=== PATIENT | female | born 1985 | race Caucasian/White ===

== ENCOUNTER 2022-04-27 10:56 | Emergency (ER) | payer OTHER, SELFPAY ==
[2022-04-27] VITALS (8 sets, daily range): BP systolic 108–115; BP diastolic 61–69; PULSE 62–70; RESP 16; TEMP 36.6–36.9; O2SAT 99–100; BMI 35.0
--- NOTE | 2022-04-27 11:18 | ED_ITS ---
HPI - Nausea/Vomiting/Diarrhea General Chief complaint: Nausea/Vomiting/Diarrhea Stated complaint: Hyperemesis- 9 wks Time Seen by Provider: 04/27/22 11:03 Source: patient Mode of arrival: Ambulatory History of Present Illness HPI Narrative: Winnie is a 36-year-old woman at approximately 9 weeks gestation who has been having significant nausea and vomiting. She takes oral ondansetron to no effect. She called for her 1st OB appointment today but after speaking to the nurse, decided to come to the hospital for further evaluation. She reports many episodes of vomiting each day for many weeks now. She has not had fever. She denies urinary symptoms. She denies flank pain or abdominal pain or vaginal bleeding. Symptoms that she has experienced over the past 2 or 3 weeks are dramatically worse than her previous . Related Data Previous Rx's Medication Instructions Recorded nitrofurantoin 100 mg PO BID #14 caps 04/27/22 monohydrate/macrocrystals 100 mg capsule (Macrobid) ondansetron 4 mg disintegrating 4 mg PO Q6H PRN Nausea And 04/27/22 tablet Vomiting 10 days #40 tabs promethazine 25 mg rectal 25 mg NM Q6H PRN nausea and 04/27/22 suppository vomiting #12 ea Allergies Allergy/AdvReac Type Severity Reaction Status Date / Time No Known Drug Allergies Allergy Verified 04/27/22 11:06 Review of Systems Review of Systems Narrative: Complete review of systems is negative other than as noted above. Patient History Social History Smoking Status: Never smoker Smoking Status: Never smoker Substance Use Type: does not use Exam Narrative Exam Narrative: GENERAL: Alert, cooperative and in no distress. HEAD: Atraumatic. Normocephalic. EYES: Sclera are clear without icterus. Extraocular movements are full. ENT: No rhinorrhea. Oropharynx is moist. Mouth exam is benign. NECK: Supple. Full range of motion. CARDIOVASCULAR: Normal rate and rhythm without murmur gallop or rub. RESPIRATORY: Clear to auscultation. Breath sounds equal bilaterally. No wheezes, rales, or rhonchi. GASTROINTESTINAL: Abdomen soft, non-tender, nondistended. EXTREMITIES: No edema, full range of motion. No obvious trauma. BACK: Normal inspection, no CVA tenderness. NEURO: Nonfocal examination, normal speech, normal gait. SKIN: No rash or erythema of visible areas PSYCH: Normally oriented. Normal range of affect. Appropriate behavior Initial Vital Signs Initial Vital Signs: Vital Signs Temperature 97.9 F 04/27/22 11:04 Course Orders Ordered: ED Orders 04/27/22 11:24 CBC Auto Diff [Complete Blood Count AUTO DIFF] Stat CMP [Comprehensive Metabolic Panel] Stat HCG Quantitative /Beta subunit Stat UA dip and micro [Urinalysis and Microscopic] Stat Urine Culture Stat Ondansetron HCl (Ondansetron 4 Mg/2 Ml Inj) 4 mg IV Q2HR PRN PRN Reason: Nausea And Vomiting Last Admin: 04/27/22 11:30 Dose: 4 mg Documented By: AT Discontinued Medications Sodium Chloride (Normal Saline 0.9%) 1,000 mls @ 1,000 mls/hr IV BOLUS ONE Stop: 04/27/22 12:12 Last Infusion: 04/27/22 13:26 Dose: 0 mls/hr Documented By: Admin: 04/27/22 11:31 Dose: 1,000 mls/hr Documented By: AT Vital Signs Vital signs: Vital Signs - 8 hr 04/27/22 11:04 04/27/22 12:05 04/27/22 12:30 Temperature 97.9 F Pulse Rate 62 65 Pulse Oximetry 100 100 Oxygen Delivery Method Room Air MDM - Nausea/Vomiting/Diarrhea Lab Data Result diagrams: 04/27/22 11:24 04/27/22 11:24 Labs: Lab Results 04/27/22 04/27/22 04/27/22 Range/Units 11:24 11:24 11:24 WBC 7.7 (4.5-11.0) X10^3/uL RBC 4.38 (4.0-5.2) X10^6/uL Hgb 13.4 (12.0-16.0) g/dL Hct 38.8 (36-46) % MCV 88.6 (80-100) fL MCH 30.5 (26-34) PG MCHC 34.4 (30-36) % RDW 13.2 (11.6-14.8) % Plt Count 241 (150-400) X10^3/uL Neut % (Auto) 71.0 (50-75) % Lymph % (Auto) 20.9 L (25-40) % [place] % (Auto) 7.2 (3-14) % Eos % (Auto) 0.3 L (2-4) % Baso % (Auto) 0.6 (0-2) % Neut # (Auto) 5500 (1345-4054) /uL Lymph # (Auto) 1600 (9819-3616) /uL [place] # (Auto) 600 (0-900) /uL Eos # (Auto) 0 (0-450) /uL Baso # (Auto) 0 (0-100) /uL Sodium 134 L (137-145) mmol/L Potassium 3.6 (3.4-5.1) mmol/L Chloride 104 (98-107) mmol/L Carbon Dioxide 22 (22-32) mmol/L BUN 10 (7-17) mg/dL Creatinine 0.88 (0.52-1.04) mg/dL Estimated GFR > 60 (>60) mL/min BUN/Creatinine Ratio 11.4 (6-22) Glucose 103 H (70-100) mg/dL Calcium 9.2 (8.4-10.2) mg/dL Total Bilirubin 0.4 (0.2-1.3) mg/dL AST 27 (14-36) IU/L ALT 23 (<35) IU/L Alkaline Phosphatase 63 (38-126) U/L Total Protein 7.2 (6.3-8.2) g/dL Albumin 4.0 (3.5-5.0) g/dL Globulin 3.2 (1.7-4.1) g/dL Albumin/Globulin Ratio 1.3 (1.0-2.8) HCG, Quant 460317 mIU/mL Urine Color Urine Appearance Urine pH (4.5-8.0) Ur Specific [place] (1.000-1.035) Urine Protein (Negative) Urine Glucose (UA) (Negative) g/dL Urine Ketones (NEGATIVE) Urine Occult Blood (Negative) Urine Nitrate (Negative) Urine Bilirubin (NEGATIVE) Urine Urobilinogen (0.2) E.U./dL Ur Leukocyte Esterase (NEGATIVE) Urine RBC (0-5/HPF) Urine WBC (0-5/HPF) Ur Squamous Epith Cells (0-5/HPF) Urine Bacteria (None) Ur Culture Indicated? 04/27/22 Range/Units 11:24 WBC (4.5-11.0) X10^3/uL RBC (4.0-5.2) X10^6/uL Hgb (12.0-16.0) g/dL Hct (36-46) % MCV (80-100) fL MCH (26-34) PG MCHC (30-36) % RDW (11.6-14.8) % Plt Count (150-400) X10^3/uL Neut % (Auto) (50-75) % Lymph % (Auto) (25-40) % [place] % (Auto) (3-14) % Eos % (Auto) (2-4) % Baso % (Auto) (0-2) % Neut # (Auto) (0909-8165) /uL Lymph # (Auto) (0776-7763) /uL [place] # (Auto) (0-900) /uL Eos # (Auto) (0-450) /uL Baso # (Auto) (0-100) /uL Sodium (137-145) mmol/L Potassium (3.4-5.1) mmol/L Chloride (98-107) mmol/L Carbon Dioxide (22-32) mmol/L BUN (7-17) mg/dL Creatinine (0.52-1.04) mg/dL Estimated GFR (>60) mL/min BUN/Creatinine Ratio (6-22) Glucose (70-100) mg/dL Calcium (8.4-10.2) mg/dL Total Bilirubin (0.2-1.3) mg/dL AST (14-36) IU/L ALT (<35) IU/L Alkaline Phosphatase (38-126) U/L Total Protein (6.3-8.2) g/dL Albumin (3.5-5.0) g/dL Globulin (1.7-4.1) g/dL Albumin/Globulin Ratio (1.0-2.8) HCG, Quant mIU/mL Urine Color Yellow Urine Appearance Sl cloudy Urine pH 5.5 (4.5-8.0) Ur Specific [place] 1.025 (1.000-1.035) Urine Protein 1+ H (Negative) Urine Glucose (UA) Negative (Negative) g/dL Urine Ketones 3+ H (NEGATIVE) Urine Occult Blood Trace-lysed (Negative) Urine Nitrate Negative (Negative) Urine Bilirubin Negative (NEGATIVE) Urine Urobilinogen 0.2 (0.2) E.U./dL Ur Leukocyte Esterase Trace H (NEGATIVE) Urine RBC None seen (0-5/HPF) Urine WBC 1-5/hpf (0-5/HPF) Ur Squamous Epith Cells 1-5 /hpf (0-5/HPF) Urine Bacteria Few (2-10) H (None) Ur Culture Indicated? Specimen cultured MDM Narrative Medical decision making narrative: Patient has asymptomatic bacteriuria. Will treat empirically. No evidence of severe dehydration. I have prescribed antiemetic medication. I recommend outpatient follow-up. Discharge Plan Departure Patient Disposition: Home Clinical Impression: Hyperemesis gravidarum Instructions: DI for Hyperemesis Gravidarum Activity Restrictions/Additional Instructions: No dangerous dehydration is detected. You have a few bacteria in the urine and in the setting of we recommend an antibiotic for 7 days. Regarding her nausea I recommend ondansetron oral dissolving tablets every 4 hours as needed. If this is not sufficient, you could take promethazine rectal suppositories every 6 hours. Make sure you are drinking plenty of fluid, small sips frequently. Try to eat small high-protein meals frequently throughout the day. Follow-up with your obstetrical provider in the coming days. Return to the emergency department if you are concerned that he may be becoming significantly dehydrated or if your symptoms of nausea or so severe that they cannot be controlled with the medicines provided. Prescriptions: New promethazine 25 mg suppository 25 mg NM Q6H PRN (Reason: nausea and vomiting) Qty: 12 0RF nitrofurantoin monohyd/m-cryst [Macrobid] 100 mg capsule 100 mg PO BID Qty: 14 0RF Rx Instructions: must administer with a meal/food ondansetron 4 mg tablet,disintegrating 4 mg PO Q6H PRN (Reason: Nausea And Vomiting) 10 Days Qty: 40 0RF Referrals: Ruslan Suarez DO [Primary Care Provider] -
[2022-04-27] MEDS: ONDANSETRON 4 MG/2 ML INJ IV (11:30)
[2022-04-27] MEDS: SODIUM CHLORIDE 0.9% 1,000 ML 1000 ML IV (11:31)
[2022-04-27 11:32] LABS: Appearance Urine UA SL CLOUDY; Bilirubin Urine UA NEGATIVE (NEGATIVE); Color Urine UA YELLOW; Glucose Urine UA NEGATIVE (Negative); Ketones Urine UA 3+ (NEGATIVE); Leukocyte Esterase Urine UA TRACE (NEGATIVE); Nitrite Urine UA NEGATIVE (Negative); Occult Blood Urine UA TRACE-LYSED (Negative); Protein Urine UA 1+ (Negative); Specific Gravity Urine UA 1.025 (1.000-1.035); Urobilinogen Urine UA 0.2 E.U./dL (0.2)
[2022-04-27 11:34] LABS: Add Manual Diff / Slide Review NO; Basophils Absolute Auto 0 /uL (0-100); Basophils Percent Auto 0.6 % (0-2); Eosinophils Absolute Auto 0 /uL (0-450); Eosinophils Percent Auto 0.3 % (2-4); Hematocrit 38.8 % (36-46); Hemoglobin 13.4 g/dL (12.0-16.0); Lymphocytes Absolute Auto 1600 /uL (1100-4500); Lymphocytes Percent Auto 20.9 % (25-40); Mean Corpuscular HGB Conc 34.4 % (30-36); Mean Corpuscular Hemoglobin 30.5 PG (26-34); Mean Corpuscular Volume 88.6 fL (80-100); Monocytes Absolute Auto 600 /uL (0-900); Monocytes Percent Auto 7.2 % (3-14); Neutrophils Absolute Auto 5500 /uL (1500-7000); Platelet Count 241 X10^3/uL (150-400); Red Blood Cell Count 4.38 X10^6/uL (4.0-5.2); Red Cell Distribution Width 13.2 % (11.6-14.8); White Blood Cell Count 7.7 X10^3/uL (4.5-11.0); pH Urine UA 5.5 (4.5-8.0)
[2022-04-27 11:43] LABS: Bacteria Urine Few (2-10); RBC Urine None Seen (0-5/HPF); Squamous Epithelial Cell Urine 1-5 /HPF (0-5/HPF); WBC Urine 1-5/HPF (0-5/HPF)
[2022-04-27 11:44] LABS: Culture Indicated Urine Specimen Cultured
[2022-04-27 11:50] LABS: Alanine Aminotransferase 23 IU/L (<35); Albumin Globulin Ratio 1.3 (1.0-2.8); Alkaline Phosphatase 63 U/L (38-126); Aspartate Aminotransferase 27 IU/L (14-36); BUN Creatinine Ratio 11.4 (6-22); Bilirubin Total 0.4 mg/dL (0.2-1.3); Blood Urea Nitrogen 10 mg/dL (7-17); Calcium 9.2 mg/dL (8.4-10.2); Carbon Dioxide 22 mmol/L (22-32); Chloride 104 mmol/L (98-107); Estimated Glomerular Filt Rate > 60 mL/min (>60); Globulin 3.2 g/dL (1.7-4.1); Glucose 103 mg/dL (70-100); HEMOLYSIS < 15 (0-50); Potassium 3.6 mmol/L (3.4-5.1); Sodium 134 mmol/L (137-145); Total Protein 7.2 g/dL (6.3-8.2)
[2022-04-27 12:31] LABS: HCG Quantitative /Beta subunit 118860 mIU/mL
== END 2022-04-27 13:39 | disposition home or self-care (01) ==
PROVIDERS: Emergency Provider Family Medicine Addiction Medicine; PCP Student in an Organized Health Care Education/Training Program
DX: O21.0 Mild hyperemesis gravidarum (principal); Z3A.09 9 weeks gestation of pregnancy
CPT/HCPCS: 36415; 80053; 81001; 84702; 85025; 87086; 96361; 96374; 99284; J2405

== ENCOUNTER → 2022-04-30 09:48 | Outpatient (CLI) | payer OTHER, SELFPAY ==
--- NOTE | 2022-04-30 09:49 | DI.US.S_ITS ---
PROCEDURE: US OB <= 14 WEEKS FETUS INDICATIONS: dating and viability OUTSIDE/PRIOR DATING DATA: Last menstrual period (LMP): 02/20/2022. LMP-based estimated date of delivery (DYAN): 11/27/2022. First dating scan (date and location): 04/30/2022. Estimated date of delivery (DYAN) from first dating scan: 11/30/2022. The calculations are made using the ultrasound derived DYAN of 11/30/2022. TECHNIQUE: Real-time scanning was performed of the fetus and maternal pelvic organs, with image documentation. Endovaginal scanning was also performed to better visualize the fetus and maternal ovaries. COMPARISON: None. FINDINGS: Embryo: [place]-rump length 2.6 centimeters. Estimated gestational age 9 weeks 3 days on the basis of this crown-rump length. Heart rate: 175 Maternal organs: Ovaries normal. IMPRESSION: Single living intrauterine with crown-rump length of 2.6 centimeters which yields estimated gestational age of 9 weeks 3 days. We strive to produce accurate, complete, and clear reports of imaging services. To assist us in improving patient care, this report was composed using standard report templates and voice recognition software. Therefore, it may contain abnormal punctuation, insertions and/or omissions. Occasional wrong-word or sound-alike substitutions may occur. Though we review the report and make efforts to correct it, we do recommend that the report be read carefully in proper context to recognize any text inaccuracies. Dictated by: Saad Tay M.D. on 04/30/2022 at 12:34 Approved by: Saad Tay M.D. on 04/30/2022 at 12:35
== END ==
PROVIDERS: PCP Student in an Organized Health Care Education/Training Program; Referring Provider Obstetrics & Gynecology; Visit Provider Obstetrics & Gynecology
DX: Z34.81 Encounter for supervision of other normal pregnancy, first trimester (principal); Z3A.09 9 weeks gestation of pregnancy
CPT/HCPCS: 76801

== ENCOUNTER → 2022-05-01 11:39 | Outpatient (CLI) | payer OTHER, SELFPAY ==
[2022-05-01 13:24] LABS: Add Manual Diff / Slide Review NO; Basophils Absolute Auto 0 /uL (0-100); Basophils Percent Auto 0.7 % (0-2); Eosinophils Absolute Auto 0 /uL (0-450); Eosinophils Percent Auto 0.6 % (2-4); Hematocrit 36.8 % (36-46); Hemoglobin 12.6 g/dL (12.0-16.0); Lymphocytes Absolute Auto 1900 /uL (1100-4500); Lymphocytes Percent Auto 33.4 % (25-40); Mean Corpuscular HGB Conc 34.4 % (30-36); Mean Corpuscular Hemoglobin 30.6 PG (26-34); Monocytes Absolute Auto 500 /uL (0-900); Monocytes Percent Auto 8.1 % (3-14); Neutrophils Absolute Auto 3300 /uL (1500-7000); Neutrophils Percent Auto 57.2 % (50-75); Platelet Count 211 X10^3/uL (150-400); Red Blood Cell Count 4.14 X10^6/uL (4.0-5.2); Red Cell Distribution Width 13.4 % (11.6-14.8); White Blood Cell Count 5.8 X10^3/uL (4.5-11.0)
[2022-05-01 15:51] LABS: Hepatitis B Surface Antigen NEGATIVE s/c (NEGATIVE); Rubella Antibody IgG 17.5 IU/mL (>15)
[2022-05-01 16:19] LABS: HIV 1 & 2 Ab/Ag 4th Gen Combo NEGATIVE (NEGATIVE); Hep C Virus Ab w/Reflex Quant NEGATIVE s/c (NEGATIVE)
[2022-05-02 07:47] LABS: RPR Screen Non Reactive (Non Reactive)
[2022-05-02 08:08] LABS: Varicella IgG Antibody 2252 index (Immune >165)
== END ==
PROVIDERS: PCP Student in an Organized Health Care Education/Training Program; Referring Provider Obstetrics & Gynecology; Visit Provider Obstetrics & Gynecology
DX: Z34.81 Encounter for supervision of other normal pregnancy, first trimester (principal)
CPT/HCPCS: 36415; 80055; 86787; 86803; 86850; 86900; 86901; 87086; 87389

== ENCOUNTER → 2022-05-08 13:05 | Outpatient (CLI) | payer OTHER, SELFPAY | PROVIDERS: PCP Student in an Organized Health Care Education/Training Program; Referring Provider Obstetrics & Gynecology; Visit Provider Obstetrics & Gynecology | DX: O09.511 Supervision of elderly primigravida, first trimester (principal) | CPT/HCPCS: 36415 ==

== ENCOUNTER → 2022-06-18 10:13 | Outpatient (CLI) | payer OTHER, SELFPAY ==
[2022-06-18 14:18] LABS: Urine N gonorrhoeae NOT DETECTED
[2022-06-18 15:09] LABS: Urine Chlamydia NOT DETECTED
[2022-06-20 19:38] LABS: AFP Value 23.4 ng/mL (.); Gest Age on Col Date 16.9 weeks (.); Insulin Dep Diabetes No (.); OSBR Risk 1IN 10000 (.); Results Report (.); Test Results *Screen Negative* (.)
== END ==
PROVIDERS: PCP Student in an Organized Health Care Education/Training Program; Referring Provider Obstetrics & Gynecology; Visit Provider Obstetrics & Gynecology
DX: Z34.02 Encounter for supervision of normal first pregnancy, second trimester (principal); Z11.3 Encounter for screening for infections with a predominantly sexual mode of transmission; Z3A.16 16 weeks gestation of pregnancy
CPT/HCPCS: 36415; 82105; 87491; 87591

== ENCOUNTER → 2022-07-15 13:59 | Outpatient (CLI) | payer OTHER, SELFPAY ==
--- NOTE | 2022-07-15 14:01 | DI.US.S_ITS ---
PROCEDURE: US OB >= 14 WEEKS FETUS INDICATIONS: 20 Week Anatomy Scan OUTSIDE/PRIOR DATING DATA: Last menstrual period (LMP): 02/20/2022. LMP-based estimated date of delivery (DYAN): 11/27/2022. First dating scan (date and location): 04/30/2022. Estimated date of delivery (DYAN) from first dating scan: 11/30/2022. The calculations are made using the ultrasound DYAN of 11/30/2022. TECHNIQUE: Real-time scanning was performed of the fetus, with image documentation and biometric measurements. COMPARISON: [facility], , OB <= 14 WEEKS FETUS, 04/30/2022, 9:55. FINDINGS: General: A single living intrauterine gestation is present. Presentation: Vertex. Placenta: Placental position is right fundal, without previa. Amniotic fluid index: 14.2 cm, normal range is 5-24 cm. Single deepest vertical pocket is 5.6 cm. heart rate: 160 beats per minute. Maternal cervical canal: 4 cm long. Normal lower limit is 2.5 cm. biometrics: Biparietal diameter: 5.0 cm, 21 weeks 0 days Head circumference: 18.8 cm, 21 weeks 0 days Abdominal circumference: 15.5 cm, 20 weeks 5 days Femur length: 3.6 cm, 21 weeks 2 days Clinically estimated gestational age: 20 weeks 2 days Composite gestational age from present scan: 21 weeks 0 days Estimated weight and percentile: 390 g, 82 percentile. Anatomic survey: Neuro: Ventricles are non-dilated at less than 10 mm. Cisterna magna is normal at 3-11 mm. Cerebellum is normal in size and morphology. Nuchal skin fold: Normal at less than 6 mm between 14-21 weeks gestational age. Face: Nose and lips are normal. profile is not seen. Spine: No evidence for spina bifida. Heart: 4-chambered heart is present, with normal ventricular outflow tracts. Diaphragm: Diaphragm is intact. Stomach: Left-sided stomach is present. Kidneys: No hydronephrosis. Normal is less than 5 mm in 2nd trimester, less than 7 mm in 3rd trimester. Cord: 3-vessel cord has orthotopic insertion. Bladder: Normal in size. Extremities: All 4 extremities identified. IMPRESSION: 1. [place] living intrauterine at 21 weeks 0 days based on today's ultrasound. Fetus is at the 82nd percentile for weight. 2. Normal placenta and amniotic fluid. 3. facial profile is not well seen. Otherwise normal anatomic survey. Follow-up OB ultrasound is recommended. We strive to produce accurate, complete, and clear reports of imaging services. To assist us in improving patient care, this report was composed using standard report templates and voice recognition software. Therefore, it may contain abnormal punctuation, insertions and/or omissions. Occasional wrong-word or sound-alike substitutions may occur. Though we review the report and make efforts to correct it, we do recommend that the report be read carefully in proper context to recognize any text inaccuracies. Dictated by: Puneet Kaufman M.D. on 07/15/2022 at 19:40 Approved by: Puneet Kaufman M.D. on 07/15/2022 at 19:45
== END ==
PROVIDERS: PCP Student in an Organized Health Care Education/Training Program; Referring Provider Obstetrics & Gynecology; Visit Provider Obstetrics & Gynecology
DX: Z34.82 Encounter for supervision of other normal pregnancy, second trimester (principal); Z3A.21 21 weeks gestation of pregnancy
CPT/HCPCS: 76811

== ENCOUNTER → 2022-08-28 14:08 | Outpatient (CLI) | payer OTHER, SELFPAY ==
[2022-08-28 15:50] LABS: Hematocrit 32.6 % (36-46); Hemoglobin 11.4 g/dL (12.0-16.0)
[2022-08-28 16:23] LABS: GTT (PREG) 1 Hour PP 50gm Dose 142 mg/dL (76-139)
== END ==
PROVIDERS: Referring Provider Obstetrics & Gynecology; Visit Provider Obstetrics & Gynecology
DX: Z34.82 Encounter for supervision of other normal pregnancy, second trimester (principal); Z3A.26 26 weeks gestation of pregnancy
CPT/HCPCS: 36415; 82950; 85014; 85018

== ENCOUNTER → 2022-09-04 08:19 | Outpatient (CLI) | payer OTHER, SELFPAY ==
[2022-09-04 10:43] LABS: Glucose Fasting Gestational 78 mg/dL (76-95)
[2022-09-04 11:48] LABS: Glucose 1 Hour Gest 150 mg/dL (76-180)
[2022-09-04 11:50] LABS: Glucose Tol Interp,Gestational INTERPRETATION
[2022-09-04 12:17] LABS: Glucose 2 Hour Gest 138 mg/dL (76-155)
[2022-09-04 13:09] LABS: Glucose 3 Hour Gest 112 mg/dL (76-140)
== END ==
PROVIDERS: Referring Provider Obstetrics & Gynecology; Visit Provider Obstetrics & Gynecology
DX: O99.810 Abnormal glucose complicating pregnancy (principal); Z3A.24 24 weeks gestation of pregnancy
CPT/HCPCS: 36415; 82951; 82952

== ENCOUNTER → 2022-09-14 06:49 | Outpatient (CLI) | payer OTHER, SELFPAY ==
--- NOTE | 2022-09-14 06:50 | DI.US.S_ITS ---
PROCEDURE: US OB LIMITED INDICATIONS: PROFILE NOT VISUALIZED IN PRIOR ANATOMY SCAN OUTSIDE/PRIOR DATING DATA: Last menstrual period (LMP): 02/20/22. LMP-based estimated date of delivery (DYAN): 11/27/22. First dating scan (date and location): 04/30/22. Estimated date of delivery (DYAN) from first dating scan: 11/30/22. TECHNIQUE: Real-time scanning was performed of the fetus, with image documentation. Endovaginal scanning: Not performed COMPARISON: [facility], OB >= 14 WEEKS FETUS, 07/15/2022, 14:12. FINDINGS: A single living intrauterine gestation is present. Presentation: Breech. Placenta: Placental position is right fundal, without previa. Amniotic fluid index: 12.2 cm, normal range is 5-24 cm. Single deepest vertical pocket is 5.6 cm. heart rate: 141 beats per minute. Maternal cervical canal: 4.0 cm long. Normal lower limit is 2.5 cm. Clinically estimated gestational age: 29 weeks three days facial profile was seen and appears normal. IMPRESSION: 1. Completion of the anatomy survey with a normal facial profile seen. Dictated by: Estella Fitzpatrick M.D. on 09/14/2022 at 11:43 Approved by: Estella Fitzpatrick M.D. on 09/14/2022 at 11:46
== END ==
PROVIDERS: Referring Provider Obstetrics & Gynecology; Visit Provider Obstetrics & Gynecology
DX: Z3A.29 29 weeks gestation of pregnancy; Z36.2 Encounter for other antenatal screening follow-up
CPT/HCPCS: 76815

== ENCOUNTER 2022-10-27 17:02 | Outpatient (CLI) | payer OTHER, SELFPAY ==
[2022-10-27 17:41] LABS: Appearance Urine UA SL CLOUDY; Bilirubin Urine UA NEGATIVE (NEGATIVE); Color Urine UA YELLOW; Glucose Urine UA NEGATIVE (Negative); Ketones Urine UA NEGATIVE (NEGATIVE); Leukocyte Esterase Urine UA TRACE (NEGATIVE); Nitrite Urine UA NEGATIVE (Negative); Occult Blood Urine UA NEGATIVE (Negative); Protein Urine UA NEGATIVE (Negative); Urobilinogen Urine UA 0.2 E.U./dL (0.2)
[2022-10-27 17:53] LABS: Bacteria Urine Moderate (10-30); Culture Indicated Urine Specimen Cultured; RBC Urine 0-1/HPF (0-5/HPF); Squamous Epithelial Cell Urine 5-10 /HPF (0-5/HPF); WBC Urine 5-10/HPF (0-5/HPF)
== END 2022-10-27 18:15 | disposition home or self-care (01) ==
LOC: LABOR 17:20 → OB 10-29 15:53
PROVIDERS: Family Medicine; Referring Provider Obstetrics & Gynecology; Visit Provider Obstetrics & Gynecology
DX: O60.03 Preterm labor without delivery, third trimester (principal); Z3A.35 35 weeks gestation of pregnancy
CPT/HCPCS: 59025; 81001; 87086; G0378; G0379

== ENCOUNTER → 2022-11-03 09:20 | Outpatient (CLI) | payer OTHER, SELFPAY ==
[2022-11-04 10:46] LABS: Strep Grp B PCR POS for Grp B Strep
== END ==
PROVIDERS: Visit Provider Obstetrics & Gynecology
DX: Z34.83 Encounter for supervision of other normal pregnancy, third trimester (principal); Z3A.36 36 weeks gestation of pregnancy
CPT/HCPCS: 87653

== ENCOUNTER → 2022-11-09 11:26 | Outpatient (CLI) | payer OTHER, SELFPAY | PROVIDERS: Visit Provider Physician Assistant Medical | DX: Z34.83 Encounter for supervision of other normal pregnancy, third trimester (principal); Z3A.37 37 weeks gestation of pregnancy | CPT/HCPCS: 87086 ==

== ENCOUNTER 2022-11-17 21:21 | Outpatient (CLI) | payer OTHER, SELFPAY ==
[2022-11-17 21:25] VITALS: BP 132/81; PULSE 106; RESP 20; TEMP 36.9
== END 2022-11-17 22:05 | disposition home or self-care (01) ==
LOC: LABOR 21:25 → OB 11-20 13:45
PROVIDERS: Referring Provider Family Medicine; Visit Provider Family Medicine
DX: Z03.71 Encounter for suspected problem with amniotic cavity and membrane ruled out (principal); O99.820 Streptococcus B carrier state complicating pregnancy; Z3A.38 38 weeks gestation of pregnancy
CPT/HCPCS: 59025; 84112; G0378; G0379

== ENCOUNTER → 2022-11-24 12:08 | Outpatient (CLI) | payer OTHER, SELFPAY ==
[2022-11-24 15:18] LABS: Protein (Total) Urine Random 20 mg/dL (0-12)
[2022-11-24 15:35] LABS: Creatinine Urine Random 388.5 mg/dL; Protein Creatinine Ratio Urine 0.05 GRAM/24H
== END ==
PROVIDERS: Visit Provider Obstetrics & Gynecology
DX: O16.3 Unspecified maternal hypertension, third trimester (principal); Z3A.39 39 weeks gestation of pregnancy
CPT/HCPCS: 82570; 84156

== ENCOUNTER → 2022-11-24 12:35 | Outpatient (CLI) | payer OTHER, SELFPAY ==
[2022-11-24 12:58] LABS: Add Manual Diff / Slide Review NO; Basophils Absolute Auto 100 /uL (0-100); Basophils Percent Auto 1.1 % (0-2); Eosinophils Absolute Auto 0 /uL (0-450); Eosinophils Percent Auto 0.4 % (2-4); Hematocrit 33.7 % (36-46); Hemoglobin 11.6 g/dL (12.0-16.0); Lymphocytes Absolute Auto 1400 /uL (1100-4500); Lymphocytes Percent Auto 18.9 % (25-40); Mean Corpuscular HGB Conc 34.5 % (30-36); Mean Corpuscular Hemoglobin 30.7 PG (26-34); Mean Corpuscular Volume 89.1 fL (80-100); Monocytes Absolute Auto 400 /uL (0-900); Monocytes Percent Auto 4.9 % (3-14); Neutrophils Absolute Auto 5500 /uL (1500-7000); Neutrophils Percent Auto 74.7 % (50-75); Platelet Count 181 X10^3/uL (150-400); Red Blood Cell Count 3.78 X10^6/uL (4.0-5.2); Red Cell Distribution Width 14.3 % (11.6-14.8); White Blood Cell Count 7.4 X10^3/uL (4.5-11.0)
[2022-11-24 13:25] LABS: Alanine Aminotransferase 42 IU/L (<35); Albumin 2.9 g/dL (3.5-5.0); Alkaline Phosphatase 243 U/L (38-126); Aspartate Aminotransferase 61 IU/L (14-36); BUN Creatinine Ratio 11.8 (6-22); Bilirubin Total 0.6 mg/dL (0.2-1.3); Blood Urea Nitrogen 10 mg/dL (7-17); Calcium 8.9 mg/dL (8.4-10.2); Carbon Dioxide 20 mmol/L (22-32); Chloride 106 mmol/L (98-107); Estimated Glomerular Filt Rate > 60 mL/min (>60); Glucose 114 mg/dL (70-100); HEMOLYSIS < 15 (0-50); Potassium 3.9 mmol/L (3.4-5.1); Sodium 132 mmol/L (137-145); Total Protein 5.9 g/dL (6.3-8.2); Uric Acid 6.7 mg/dL (2.5-6.2)
== END ==
PROVIDERS: Referring Provider Obstetrics & Gynecology; Visit Provider Obstetrics & Gynecology
DX: O99.891 Other specified diseases and conditions complicating pregnancy (principal); R03.0 Elevated blood-pressure reading, without diagnosis of hypertension
CPT/HCPCS: 36415; 80053; 84550; 85025

== ENCOUNTER 2022-11-24 12:50 | Outpatient (CLI) | payer OTHER, SELFPAY ==
--- NOTE | 2022-11-24 13:31 | PM.OBTRLD ---
Visit Information Visit Information Date of evaluation: 11/24/22 Primary OB Provider: Mark Peters Reason for Evaluation: Yes non-stress test Comments/Additional reasons for admission: Olya presents for extended BP monitoring, NST, and pulse oximetry [facility] Medical History (Updated 11/24/22 @ 12:25 by Mark Peters MD) ADHD Anxiety Asthma Congenital hip dysplasia Depression Hypermobility of joint TBI (traumatic brain injury) Surgical History (Updated 04/29/22 @ 10:43 by Emmy Gill, RN) H/O shoulder surgery H/O tooth extraction [place] teeth extracted Family History (Updated 04/29/22 @ 11:57 by Emmy Gill, RN) Mother Healthy adult Grandmother Breast cancer Grandfather Colon cancer Father Skin cancer Depression Grandmother Skin cancer Grandfather H/O brain surgery Heart disease Family/Other Bipolar disorder Family/Other Bipolar disorder Family/Other Depression Family/Other Cluster headache Social History marital status: number of children: 1 household members: spouse and children lives independently: Yes housing: house pets and animals: Yes (1 small dog) education level: master's degree occupational status: 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 development)) current occupational exposures/hazards: No special mayra needs: No travel history: recent (domestic only) seatbelt use: always helmet use: Yes water heater temp set < 120 deg: Yes working smoke detector in home: Yes fire extinguisher in home: Yes carbon monox detector in home: Yes firearms in home: No do you feel safe at home: Yes Smoking Status: Never smoker second hand exposure: No alcohol intake: former (rarely when not ) substance use type: does not use during the past year weight has: increased > 10 lbs well-balanced diet: about half the time daily servings fruits/ve or more times/day caffeine: No (not currently tolerating) Type(s) of exercise: yoga frequency: 3-4 times per week additional social history: Pt went to the ED for IV fluids and to get Zofran ODT (had previously been prescribed different formulation of Zofran by [facility], which she could not keep down) after we spoke on Wednesday, doing much better today and has been able to eat and drink since then. She does need to stay on a schedule with her Zofran, but has only vomited once or twice since she went to the ED.
== END 2022-11-24 14:12 | disposition home or self-care (01) ==
LOC: LABOR 14:07 → OB 11-26 16:55
PROVIDERS: Referring Provider Obstetrics & Gynecology; Visit Provider Obstetrics & Gynecology
DX: O16.3 Unspecified maternal hypertension, third trimester (principal); Z3A.39 39 weeks gestation of pregnancy
CPT/HCPCS: 36415; 59025; 80053; 82570; 84156; 84550; 85025; G0378; G0379

== ENCOUNTER 2022-11-25 23:51 | Outpatient (CLI) | payer OTHER, SELFPAY ==
[2022-11-26] MEDS: MORPHINE 4 MG/ML INJ 0.5 MG IM (00:28)
[2022-11-26] MEDS: OXYCODONE IR 5 MG TABLET PO ×2 (01:29→02:57)
[2022-11-26] MEDS: LACTATED RINGERS 1,000 ML 1000 ML IV (01:31)
[2022-11-26] MEDS: ZOLPIDEM 5 MG TABLET PO (02:57)
== END 2022-11-26 03:10 | disposition home or self-care (01) ==
LOC: OB 12-16 07:49
PROVIDERS: Referring Provider Family Medicine; Visit Provider Family Medicine
DX: O47.1 False labor at or after 37 completed weeks of gestation (principal); O99.820 Streptococcus B carrier state complicating pregnancy; O26.893 Other specified pregnancy related conditions, third trimester; R05.9 Cough, unspecified; Z3A.39 39 weeks gestation of pregnancy
CPT/HCPCS: 59025; 59050; 96360; 96372; G0378; G0379; J2270

== ENCOUNTER 2022-11-26 19:20 | Inpatient (IN) | payer OTHER, SELFPAY ==
[2022-11-26 20:09] VITALS: BP 131/90
[2022-11-26 20:45] LABS: Add Manual Diff / Slide Review NO; Basophils Absolute Auto 100 /uL (0-100); Basophils Percent Auto 1.4 % (0-2); Eosinophils Absolute Auto 0 /uL (0-450); Eosinophils Percent Auto 0.4 % (2-4); Hematocrit 32.9 % (36-46); Hemoglobin 11.4 g/dL (12.0-16.0); Lymphocytes Absolute Auto 1600 /uL (1100-4500); Lymphocytes Percent Auto 23.1 % (25-40); Mean Corpuscular HGB Conc 34.6 % (30-36); Mean Corpuscular Hemoglobin 30.9 PG (26-34); Mean Corpuscular Volume 89.3 fL (80-100); Monocytes Absolute Auto 500 /uL (0-900); Monocytes Percent Auto 7.1 % (3-14); Neutrophils Absolute Auto 4700 /uL (1500-7000); Platelet Count 201 X10^3/uL (150-400); Red Blood Cell Count 3.69 X10^6/uL (4.0-5.2); Red Cell Distribution Width 14.4 % (11.6-14.8); White Blood Cell Count 6.9 X10^3/uL (4.5-11.0)
[2022-11-26 21:09] LABS: Alanine Aminotransferase 54 IU/L (<35); Albumin 3.3 g/dL (3.5-5.0); Alkaline Phosphatase 258 U/L (38-126); Aspartate Aminotransferase 59 IU/L (14-36); BUN Creatinine Ratio 8.9 (6-22); Bilirubin Total 0.6 mg/dL (0.2-1.3); Blood Urea Nitrogen 7 mg/dL (7-17); Calcium 8.8 mg/dL (8.4-10.2); Carbon Dioxide 20 mmol/L (22-32); Chloride 105 mmol/L (98-107); Estimated Glomerular Filt Rate > 60 mL/min (>60); Globulin 3.3 g/dL (1.7-4.1); Glucose 81 mg/dL (70-100); HEMOLYSIS < 15 (0-50); Potassium 3.8 mmol/L (3.4-5.1); Sodium 131 mmol/L (137-145); Total Protein 6.6 g/dL (6.3-8.2)
[2022-11-26 21:10] LABS: Creatinine Urine Random 176.9 mg/dL; Protein (Total) Urine Random 11 mg/dL (0-12); Protein Creatinine Ratio Urine 0.06 GRAM/24H
[2022-11-26] MEDS: ZOLPIDEM 5 MG TABLET PO (21:40)
[2022-11-26] MEDS: OXYCODONE IR 5 MG TABLET PO (21:40)
[2022-11-26] MEDS: PENICILLIN G POTASSIUM 5,000,000 UNIT in DEXTROSE 5% IN WATER 250 ML 250 UNIT IV (21:40)
[2022-11-26] MEDS: miSOPROStoL 25 MCG TABLET 50 MCG PO (21:42)
[2022-11-27] MEDS: PENICILLIN G POTASSIUM 3,000,000 UNIT/50 ML FROZ.PIGGY 100 UNIT IV ×4 (01:50→14:12)
[2022-11-27] MEDS: OXYCODONE IR 5 MG TABLET PO ×2 (01:51→04:38)
[2022-11-27] MEDS: miSOPROStoL 25 MCG TABLET 50 MCG PO (03:53)
[2022-11-27] MEDS: LORazepam 2 MG/ML INJ 0.5 MG IV (04:37)
[2022-11-27] MEDS: CYCLOBENZAPRINE 10 MG TABLET PO (04:38)
[2022-11-27] MEDS: fentaNYL 100 MCG/2 ML INJ 50 MCG IV (06:21)
[2022-11-27] MEDS: FENT 2MCG/ML BUPIV 0.125% EPI 200 MCG/100 ML PLAST..BAG 6 MCG EPIDURAL ×2 (07:45→12:31)
--- NOTE | 2022-11-27 07:58 | P.HPOB_ITS ---
OB HPI Date/Time Date of admission: 11/26/22 Date Patient Seen: 11/27/22 Time Patient Seen: 07:00 History of Present Condition Chief complaint: IUP, 39+ 2 wks EGA, AMA, gestational hypertension, : 2 Para: 1 Estimated Date of Delivery: 11/29/22 Estimated Gestational Age (weeks): 39+5 Narrative: Winnie Haley is a 37 year old , DYAN 11/29/2022 who was admitted ripening and induction at 39+ 4 weeks gestational age due to advanced maternal age, gestational hypertension, and mild elevation of her transaminase levels. Patient has also for the last 48 hours had severe rib pain on the left side which has been unrelenting. She denies shortness of breath, hemoptysis, or pleuritic type chest pain. She has recently been diagnosed COVID and has recovered but continues to have respiratory symptoms such as severe cough appears to have triggered her rib pain. course has otherwise been uneventful with solid dating and appropriate milestones throughout. Her GBS status is positive. Indications Indication for induction OB: gestational HTN/pre-eclampsia and other (Advanced maternal age) History of Present Dating criteria: LMP confirmed by 1st trimester US Ultrasounds: normal 1st trimester US and normal mid trimester US Obstetrical complications: gestational hypertension Medical complications: none Preadmission Labs Blood type: A (+) positive -: Antibody screen: negative, GBS status: positive, HBsAG: negative, HIV: negative and RPR/VDLR: negative -: Chlamydia screen: not detected and Gonorrhea screen: not detected -: Rubella: immune and Varicella: immune HCT: 32.9 HCAB: negative PAP: Normal Cell-free DNA: Low risk female 1 hr GTT: 142 3 hr GTT: 1 hr (150), 2 hr (138) and 3 hr (112) Fasting blood glucose: 78 Prior (ies) History: x 1 Evaluation Evaluation Baseline heart rate: 140 Variability: Moderate (11-25) monitor accelerations: Present Monitor Decelerations: Absent Contraction Frequency (minutes): 4 Uterine Contraction Intensity: Moderate Category of Tracing: Reactive Status: Category l PFSH Medical History (Updated 11/24/22 @ 12:25 by Mark Peters MD) ADHD Anxiety Asthma Congenital hip dysplasia Depression Hypermobility of joint TBI (traumatic brain injury) Surgical History (Updated 04/29/22 @ 10:43 by Emmy Gill RN) H/O shoulder surgery H/O tooth extraction [place] teeth extracted Family History (Updated 04/29/22 @ 11:57 by Emmy Gill RN) Mother Healthy adult Grandmother Breast cancer Grandfather Colon cancer Father Skin cancer Depression Grandmother Skin cancer Grandfather H/O brain surgery Heart disease Family/Other Bipolar disorder Family/Other Bipolar disorder Family/Other Depression Family/Other Cluster headache Social History marital status: number of children: 1 household members: spouse and children lives independently: Yes housing: house pets and animals: Yes (1 small dog) education level: master's degree 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 development)) current occupational exposures/hazards: No special mayra needs: No travel history: recent (domestic only) seatbelt use: always helmet use: Yes water heater temp set < 120 deg: Yes working smoke detector in home: Yes fire extinguisher in home: Yes carbon monox detector in home: Yes firearms in home: No do you feel safe at home: Yes Smoking Status: Never smoker second hand exposure: No alcohol intake: former (rarely when not ) substance use type: does not use during the past year weight has: increased > 10 lbs well-balanced diet: about half the time daily servings fruits/ve or more times/day caffeine: No (not currently tolerating) Type(s) of exercise: yoga frequency: 3-4 times per week additional social history: Pt went to the ED for IV fluids and to get Zofran ODT (had previously been prescribed different formulation of Zofran by [facility], which she could not keep down) after we spoke on Wednesday, doing much better today and has been able to eat and drink since then. She does need to stay on a schedule with her Zofran, but has only vomited once or twice since she went to the ED. Meds Home Medications and Allergies Home Medications Medication Instructions Recorded Confirmed Type prenat.vits,francoise,bip-osfo-lladk 1 tab PO BEDTIME 04/29/22 11/26/22 History sertraline 50 mg tablet (Zoloft) 50 mg PO DAILY #30 tabs 06/16/22 11/26/22 Rx Allergies Allergy/AdvReac Type Severity Reaction Status Date / Time feathers Allergy Intermediate Swelling Verified 11/26/22 23:17 of the Eye [place] Allergy Intermediate Swelling Uncoded 11/24/22 11:45 of the Eye quinoa AdvReac Mild Abdominal Uncoded 11/26/22 23:18 Pain Review of Systems Review of Systems Narrative: Problem-specific ROS positives included in HPI OB Exam Vital signs Blood Pressure: 139/86 Pulse Rate: 108 Temperature: 97.5 F HENGA Head: normal to inspection, normocephalic and atraumatic Eyes General: appearance normal, both eyes and all related structures Resp Effort & Inspection: normal respiratory effort and able to speak in complete sentences Auscultation: clear to auscultation bilaterally Cardio Rate: regular rate Rhythm: regular rhythm Heart Sounds: S1 normal, S2 normal and no murmurs Extremities Lower extremity: Yes normal to inspection GI Inspection: normal to inspection Palpation: Yes soft and Yes no hepatosplenomegaly Uterus Location (Fundal Height): 38 Presentation: vertex Estimated Weight (lbs): 8 Objective Labs 11/28/22 06:20 11/26/22 20:20 Labs: Laboratory Results - last 24 hr 11/26/22 11/26/22 11/26/22 19:40 20:20 20:20 WBC 6.9 RBC 3.69 L Hgb 11.4 L Hct 32.9 L MCV 89.3 MCH 30.9 MCHC 34.6 RDW 14.4 Plt Count 201 Neut % (Auto) 68.0 Lymph % (Auto) 23.1 L [place] % (Auto) 7.1 Eos % (Auto) 0.4 L Baso % (Auto) 1.4 Neut # (Auto) 4700 Lymph # (Auto) 1600 [place] # (Auto) 500 Eos # (Auto) 0 Baso # (Auto) 100 Sodium Potassium Chloride Carbon Dioxide BUN Creatinine Estimated GFR BUN/Creatinine Ratio Glucose Calcium Total Bilirubin AST ALT Alkaline Phosphatase Total Protein Albumin Globulin Albumin/Globulin Ratio U Random Total Protein 11 Urine Creatinine 176.9 Protein/Creatinin Ratio 0.06 Blood Type A Positive Antibody Screen Negative 11/26/22 20:20 WBC RBC Hgb Hct MCV MCH MCHC RDW Plt Count Neut % (Auto) Lymph % (Auto) [place] % (Auto) Eos % (Auto) Baso % (Auto) Neut # (Auto) Lymph # (Auto) [place] # (Auto) Eos # (Auto) Baso # (Auto) Sodium 131 L Potassium 3.8 Chloride 105 Carbon Dioxide 20 L BUN 7 Creatinine 0.79 Estimated GFR > 60 BUN/Creatinine Ratio 8.9 Glucose 81 Calcium 8.8 Total Bilirubin 0.6 AST 59 H ALT 54 H Alkaline Phosphatase 258 H Total Protein 6.6 Albumin 3.3 L Globulin 3.3 Albumin/Globulin Ratio 1.0 U Random Total Protein Urine Creatinine Protein/Creatinin Ratio Blood Type Antibody Screen Assessment and Plan Assessment and Plan Assessment and Plan narrative: ASSESSMENT 1. Intrauterine , 39+5 weeks EGA 2. Advanced maternal age 3. Gestational hypertension 4. Mild transaminase elevation 5. Slipping rib syndrome, left 6. GBS + status PLAN 1. Admit for ripening/induction 2. See admission orders
[2022-11-27 08:44] VITALS: BP 139/86; PULSE 108; TEMP 36.4
[2022-11-27] MEDS: LACTATED RINGERS 1,000 ML 100 ML IV (10:14)
[2022-11-27] MEDS: OXYTOCIN PREMIX 30 UNIT/500 ML PLAST..BAG IV (11:38)
--- NOTE | 2022-11-27 16:20 | P.PCNOB_ITS ---
Events: Induced HTN and Pre-Eclampsia Labor & Delivery Delivery date: 11/27/22 Intrapartal Events: None Cervical ripening method: per misoprostal protocol Induction method: per pitocin protocol Delivery augmentation: rupture of membranes Delivery monitor: external FHT and external uterine Route of delivery: Episiotomy description: None L&D Laceration Description: Perineal - 2nd Degree Delivery repair: chromic Estimated blood loss (mL): 250 Anesthesia Type: Epidural and Local Complications: None Narrative: Following a 15 minute second stage, the patient delivered spontaneously over an intact perineum a viable female infant with Apgars of 8/9 and a weight of 3569 g (7 lb 13.8 oz) on the afternoon 11/27/2022. No shoulder dystocia or cord entanglement was noted. Skin to skin contact was initiated immediately and delayed cord clamping performed. Once the umbilical cord was doubly clamped and cut, a cord blood sample was obtained for routine studies. Intravenous Pitocin was administered with excellent control post-delivery bleeding. The placenta was delivered easily with gentle traction on the cord and suprapubic countertraction. Inspection of the cord revealed an intact placenta 3 vessels and a marginal insertion. Inspection of the perineum revealed a superficial second-degree perineal laceration which was repaired with 2-0 chromic in the usual manner. The delivery process concluded with the mother and doing well. [place] Baby 1: gender: Female Presentation: vertex Position: Left Occiput Anterior Placenta delivery description: Spontaneous Cord Vessel Description: 3 Vessels score (1 min): 8 score (5 min): 9 weight: 7 lb 13.893 oz
[2022-11-27] MEDS: LIDOCAINE 1% 20 ML (16:22)
[2022-11-27] MEDS: DERMOPLAST SPRAY 20% 60 ML 1 SPRAY TOP (21:41)
[2022-11-27] MEDS: LANOLIN OINT 7 GM 1 APPLIC TOP (21:42)
[2022-11-27] MEDS: IBUPROFEN 600 MG TABLET PO (21:42)
[2022-11-27] MEDS: ACETAMINOPHEN 325 MG TABLET 650 MG PO (21:42)
[2022-11-28] MEDS: ACETAMINOPHEN 325 MG TABLET 650 MG PO ×2 (05:38→12:11)
[2022-11-28] MEDS: IBUPROFEN 600 MG TABLET PO ×2 (05:38→12:11)
[2022-11-28 06:33] LABS: Add Manual Diff / Slide Review NO; Basophils Absolute Auto 0 /uL (0-100); Basophils Percent Auto 0.3 % (0-2); Eosinophils Absolute Auto 0 /uL (0-450); Eosinophils Percent Auto 0.6 % (2-4); Hematocrit 31.3 % (36-46); Hemoglobin 10.7 g/dL (12.0-16.0); Lymphocytes Absolute Auto 2000 /uL (1100-4500); Mean Corpuscular HGB Conc 34.4 % (30-36); Mean Corpuscular Hemoglobin 30.9 PG (26-34); Monocytes Absolute Auto 400 /uL (0-900); Monocytes Percent Auto 5.9 % (3-14); Neutrophils Absolute Auto 4900 /uL (1500-7000); Neutrophils Percent Auto 66.2 % (50-75); Platelet Count 187 X10^3/uL (150-400); Red Blood Cell Count 3.47 X10^6/uL (4.0-5.2); Red Cell Distribution Width 14.6 % (11.6-14.8); White Blood Cell Count 7.4 X10^3/uL (4.5-11.0)
[2022-11-28] MEDS: SERTRALINE 50 MG TABLET PO (09:53)
[2022-11-28] MEDS: DOCUSATE 100 MG CAPSULE PO (09:54)
--- NOTE | 2022-11-28 11:29 | PM.OBDS.1 ---
Discharge Providers Provider Date of admission: 11/26/22 19:20 Discharge Date: 11/28/22 Primary care physician: Emmie SLATER Provider Consults: 11/26/22 19:42 Consult to Anesthesiology Urgent Comment: Consulting Provider: Mark Peters Reason for consultation: Epidural 11/28/22 16:17 Consult to Vaccine Key Customer Leader Routine Comment: Discharge provider: Mark ePters MD Summary Hospital Course Date Patient Seen: 11/28/22 Time Patient Seen: 11:30 Diagnoses: Intrauterine gestation, 39+ 5 weeks gestational age, delivered by spontaneous vaginal Gestational hypertension without severe features Advanced maternal age Slipping rib syndrome, left GBS positive status Hospital Course: Olya was admitted on the evening of 11/26/2022 for cervical ripening due to advanced maternal age and gestational hypertension. Oral Cytotec was used as a ripening agent and on the morning of 11/27/2022 Pitocin augmentation was initiated. She progressed well through labor and delivered on the afternoon of 11/27/2022 a viable female with Apgars of 8/9, weight 3569 g (7 lb 13.8 oz). Following delivery both mother and baby have done well with the mother experiencing prompt return of bowel and bladder function, she is ambulating independently, tolerating a regular diet, and her pain is well controlled with oral pain medications. She has experienced some residual left-sided rib pain due to slipping rib syndrome. In addition she is experiencing a slight amount of numbness in the lateral aspect of the right upper extremity as slight asymmetry (1 cm) between the left and right calf. The right calf is marginally larger and the right foot is slightly more swollen than the left but there is no calf tenderness on other side or evidence of DVT in the upper leg. Patient will keep a close watch on the leg for additional areas of tenderness or further swelling. Blood pressures following delivery have all been in the normal range with a single blood pressure elevation when the patient was returning from going to bathroom. Patient will continue to keep close watch on her blood pressures at home and report any consistent elevation above the 140/90 range and/or headaches, blurred vision, or right upper quadrant pain. Prior to discharge the patient has been counseled regarding precautionary symptoms, limitations of activity, medications, and plans for follow-up. No prescriptions prescribed at the time of discharge and follow-up will be in 6 weeks. Peripartum Data Delivery Method: Natural Vaginal Laceration Description: Perineal - 2nd Degree Episiotomy description: None complications: none [place] 1: Gender: Female Disposition of : home Status at Discharge Cognitive/behavioral status at discharge: oriented Functional status at discharge: independent ambulation Overall status at discharge: patient is progressing back to baseline Time Spent with Patient Time attestation: Total time spent providing and/or coordinating discharge services: Time spent: Less than 30 minutes Objective Labs 11/28/22 06:20 11/26/22 20:20 Labs: Laboratory Results - last 24 hr 11/28/22 06:20 WBC 7.4 RBC 3.47 L Hgb 10.7 L Hct 31.3 L MCV 90.0 MCH 30.9 MCHC 34.4 RDW 14.6 Plt Count 187 Neut % (Auto) 66.2 Lymph % (Auto) 27.0 Morrison % (Auto) 5.9 Eos % (Auto) 0.6 L Baso % (Auto) 0.3 Neut # (Auto) 4900 Lymph # (Auto) 2000 Morrison # (Auto) 400 Eos # (Auto) 0 Baso # (Auto) 0 Exam Const General: cooperative and comfortable Nutritional Appearance: average body habitus Orientation: alert and oriented x3 HENMT Head: normal to inspection, atraumatic and abrasion Ears: hearing grossly normal bilaterally Face and sinus: face symmetric Eyes General: appearance normal, both eyes and all related structures Conjunctivae: conjunctivae normal Sclera: sclerae normal EOM: EOM intact bilaterally Neck Neck: normal visual inspection Resp Effort & Inspection: normal respiratory effort and able to speak in complete sentences GI Inspection: normal to inspection Palpation: soft, no hepatosplenomegaly and mass (Firm, nontender fundus, U -5) External Female Exam: other (No significant bleeding noted, stitches intact) Extrem General: no calf tenderness Psych Appearance: grossly normal Mental Status: mental status grossly normal Speech and Movement: speech and movement normal Mood: congruent mood Affect: normal affect Attitude: cooperative Thought Process: normal Thought Content: normal Judgment: judgment good Discharge Plan Discharge Plan Patient Disposition: Home Provider Discharge Comment: Please review the written instructions you received when you were discharged from the hospital. Your follow-up appointment will be scheduled for 6 weeks after your delivery and I look forward to seeing you then. If however in the meanwhile you have any concerns, problems, or questions, please feel free to contact me either through the office phone at [phone], or via the patient portal. Discharge orders & Medications Prescriptions: Continued sertraline [Zoloft] 50 mg tablet 50 mg PO DAILY Qty: 30 6RF prenat.vits,francoise,[id number] Tablet 1 tab PO BEDTIME Follow up/Referrals: Emmie Narvaez [Primary Care Provider] - Mark Peters MD [Physician] - Discharge Health Status Multidrug resistant organism: No MDRO Diet/Activity/Treatments Diet: Diet as Tolerated Activity: As tolerated Other treatments: [id number] Tylenol and/or ibuprofen may be used for pain relief. Rixc-yna-gzevnqt stool softeners and/or MiraLax may be used for constipation as needed. Skin/Wound/Dressing Care Report to your healthcare provider any signs of infection, such as:: chills, fever, increased pain and unusual redness Dressing: N/A Visit Report/Discharge Packet Instructions: DI for Labor and Delivery, Vaginal , DI for and Nipple Soreness Discharge Data Primary Care Provider: Emmie Narvaez Attending Provider: Mark Peters Admit Date/Time: 11/26/22 19:20
== END 2022-11-28 15:30 | disposition home or self-care (01) | DRG 807 ==
PROVIDERS: Admitting Provider Obstetrics & Gynecology; Referring Provider Obstetrics & Gynecology; Visit Provider Obstetrics & Gynecology
DX: O13.4 Gestational [pregnancy-induced] hypertension without significant proteinuria, complicating childbirth (principal); Z37.0 Single live birth; Z3A.39 39 weeks gestation of pregnancy; O99.824 Streptococcus B carrier state complicating childbirth; O70.1 Second degree perineal laceration during delivery; O47.1 False labor at or after 37 completed weeks of gestation; O99.820 Streptococcus B carrier state complicating pregnancy; O26.893 Other specified pregnancy related conditions, third trimester; R05.9 Cough, unspecified
CPT/HCPCS: 36415; 59025; 59050; 59200; 59400; 80053; 82570; 84156; 85025; 86850; 86900; 86901; 96360; 96372; G0378; G0379; J2060; J2270; J2540; J2590; J3010

== ENCOUNTER 2023-09-02 13:15 | Emergency (ER) | payer OTHER, SELFPAY ==
[2023-09-02 13:26] VITALS: BP 124/85; PULSE 105; RESP 18; TEMP 37; O2SAT 98; BMI 39.1
--- NOTE | 2023-09-02 14:20 | PC.NURSE ---
Pt is tearful, sitting up in bed with her friend at bedside. Pt states she had RSV a couple weeks ago and felt better, now feels sick again with a cough which is productive. Pt seen at the walk in and diagnosed with pneumonia, on doxycycline abx which started last night. Pt has difficulty explaining exactly what has caused her increased anxiety. When questioned about her anxiety and history, patient becomes tachypneic, tearful and sobbing. Pt is taking lorazepam which is prescribed daily 1/2 tablets PRN. Last night patient took a whole pill. She states the medication does nothing, and it makes me feel worse sometimes. Pt was able to say that her daughter, who she found unresponsive when she was around 3-4months old, is currently doing well. This event she believes is the source of her panick attacks. Pt has diagnoses of depression, adhd, anxiety, panic attacks. Her friend at bedside is a safe support person.
--- NOTE | 2023-09-02 15:30 | ED_ITS ---
HPI - Psych General Chief Complaint: Psychiatric Symptoms Stated Complaint: panic attack, walking pneumonia per [facility] Time Seen by Provider: 09/02/23 14:59 Source: patient Mode of arrival: Ambulatory History of Present Illness HPI Narrative: Patient is a 38-year-old female who came to the emergency department today because of issues that she has been having with panic attacks and anxiety. She has a history of anxiety/depression. Also has a history of PTSD. Is on medications prescribed by her primary doctor. She is seen at the clinic at the [facility] so often she sees different providers every time that she goes. She was also 9 months . She was not suicidal. Not homicidal. Has had quite a bit of anxiety and panic attack issues recently. She was prescribed Ativan. She states that Ativan is not helping her. She was also having problems sleeping at night. She is taking the rest of her medications as directed. Related Data Home Medications Medication Instructions Recorded Confirmed prenat.vits,francoise,[id number]-[id number] 1 tab PO BEDTIME 04/29/22 01/06/23 Previous Rx's Medication Instructions Recorded sertraline 50 mg tablet (Zoloft) 50 mg PO DAILY #30 tabs 01/20/23 alprazolam 1 mg tablet (Xanax) 1 mg PO TID PRN anxiety #20 tabs 09/02/23 zolpidem 10 mg tablet (Ambien) 10 mg PO BEDTIME PRN insomnia #15 09/02/23 tabs Allergies Allergy/AdvReac Type Severity Reaction Status Date / Time feathers Allergy Intermediate Swelling Verified 09/02/23 13:33 of the Eye Angora Allergy Intermediate Swelling Uncoded 11/24/22 11:45 of the Eye quinoa AdvReac Mild Abdominal Uncoded 11/26/22 23:18 Pain Review of Systems Constitutional Constitutional: Reports system reviewed and no additional complaints, except as documented Psychiatric Psychiatric: Reports system reviewed and no additional complaints, except as documented Patient History Medical History Asthma Congenital hip dysplasia Depression Anxiety ADHD TBI (traumatic brain injury) Hypermobility of joint Surgical History (Updated 04/29/22 @ 10:43 by Emmy Gill RN) H/O tooth extraction [place] teeth extracted H/O shoulder surgery Family History (Updated 04/29/22 @ 11:57 by Emmy Gill RN) Mother Healthy adult Grandmother Breast cancer Grandfather Colon cancer Father Skin cancer Depression Grandmother Skin cancer Grandfather H/O brain surgery Heart disease Family/Other Bipolar disorder Family/Other Bipolar disorder Family/Other Depression Family/Other Cluster headache Social History marital status: number of children: 1 household members: spouse and children lives independently: Yes housing: house pets and animals: Yes (1 small dog) education level: master's degree occupational status: 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, [employer], [employer])) current occupational exposures/hazards: No special mayra needs: No travel history: recent (domestic only) seatbelt use: always helmet use: Yes water heater temp set < 120 deg: Yes working smoke detector in home: Yes fire extinguisher in home: Yes carbon monox detector in home: Yes firearms in home: No do you feel safe at home: Yes Smoking Status: Never smoker second hand exposure: No alcohol intake: former (rarely when not ) substance use type: does not use during the past year weight has: increased > 10 lbs well-balanced diet: about half the time daily servings fruits/ve or more times/day caffeine: No (not currently tolerating) Type(s) of exercise: yoga frequency: 3-4 times per week additional social history: Pt went to the ED for IV fluids and to get Zofran ODT (had previously been prescribed different formulation of Zofran by [facility], which she could not keep down) after we spoke on Wednesday, doing much better today and has been able to eat and drink since then. She does need to stay on a schedule with her Zofran, but has only vomited once or twice since she went to the ED. Smoking Status: Never smoker alcohol intake frequency: 0-2 drinks per day Substance Use Type: does not use Exam Initial Vital Signs Initial Vital Signs: Vital Signs Temperature 98.6 F 09/02/23 13:26 Pulse Rate 105 H 09/02/23 13:26 Respiratory Rate 18 09/02/23 13:26 Blood Pressure 124/85 09/02/23 13:26 Pulse Oximetry 98 09/02/23 13:26 Oxygen Delivery Method Room Air 09/02/23 13:26 [facility] Head: normal to inspection and normocephalic Resp Effort & Inspection: normal respiratory effort Cardio Rate: regular rate Neuro General: patient alert, patient awake and moves all extremities Psych Other: Patient is crying in room. Is cooperative. Not suicidal. Not homicidal. Scores GCS Talib coma scale eye opening: Spontaneous [place] coma scale verbal response: Orientated Talib coma scale motor response: Obey commands Talib coma scale total score: 15 Course Vital Signs Vital signs: Vital Signs - 8 hr 09/02/23 13:26 Temperature 98.6 F Pulse Rate 105 H Respiratory Rate 18 Blood Pressure 124/85 Pulse Oximetry 98 Oxygen Delivery Method Room Air MDM - Psych MDM Narrative Medical decision making narrative: Had an extensive discussion with the patient. She has having a difficult time navigating the system with finding a consistent mental health provider. She is on medications that she has been taking but states that every time she calls her primary care doctor's office they tell her to come to the emergency department. She has not suicidal. Not homicidal. I did discuss the case with [facility] as the patient is a dependent of an active-duty member. Mental health provider there states that the patient does not necessarily meet criteria for an inpatient admission. He recommended follow-up. I then had another extensive discussion with the patient. We do not have social work available for the next week. Informed her that she most likely would not be admitted to a facility without social work involvement. I do not feel that the patient meets criteria for involuntary admission as she is seeking help. Plan will be to discharge the patient. We will switch her from Ativan to Xanax. Will also provide a prescription for Ambien as she has been on that in the past. We did discuss specific return precautions and follow-up instructions. She expressed understanding and agreement with plan. Discharge Plan Departure Patient Disposition: Home Clinical Impression: Anxiety Instructions: DI for Anxiety -- Adult Activity Restrictions/Additional Instructions: I do recommend that you take the medications that were prescribed today as directed and as needed. I do recommend that you contact your primary care doctor for follow-up as well. Return to an emergency department for new or worsening symptoms like we discussed. Prescriptions: New alprazolam [Xanax] 1 mg tablet 1 mg PO TID PRN (Reason: anxiety) Qty: 20 0RF zolpidem [Ambien] 10 mg tablet 10 mg PO BEDTIME PRN (Reason: insomnia) Qty: 15 0RF No Action sertraline [Zoloft] 50 mg tablet 50 mg PO DAILY Qty: 30 6RF prenat.vits,francoise,[id number] Tablet 1 tab PO BEDTIME Referrals: ProviderEmmie [Primary Care Provider] - Stand Alone Forms: Patient Portal/API
--- NOTE | 2023-09-02 15:39 | PC.NURSE ---
Pt's spouse and friend are at bedside. She remains anxious and becomes tearful when asked more questions about her situation. Pt is asking about the possibility of going to an inpatient psych facility. Pt denies SI. She states she cannot sleep, wakes up nauseated after taking medications the night before and remains feeling sick the entire day. Decreased appetite, increasing frequency in panic attacks. Patient provided with snacks and water.
[2023-09-02 17:08] VITALS: BP 146/86; PULSE 75; RESP 16; O2SAT 95
== END 2023-09-02 17:10 | disposition home or self-care (01) ==
PROVIDERS: Emergency Provider Emergency Medicine
DX: F41.9 Anxiety disorder, unspecified (principal)
CPT/HCPCS: 99283